=== PATIENT | female | born 2000 | race African-American/Black ===

== ENCOUNTER 2018-01-04 21:19 | Emergency (ER) | payer MEDICAID ==
[~2018-01-04] VITALS: Ht 167.6 cm; Wt 66.4 kg
[2018-01-04 21:31] VITALS: BP 132/89; Ht 167.6 cm; Wt 66.4 kg
== END 2018-01-05 00:14 | disposition home or self-care (01) ==
LOC: D.ER 21:19
DX: R51 Headache (principal); R06.02 Shortness of breath

== ENCOUNTER 2019-10-02 18:47 | Emergency (ER) | payer SELFPAY ==
[~2019-10-02] VITALS: Ht 167.6 cm; Wt 59.0 kg
[2019-10-02 19:00] VITALS: BP 142/71; Ht 167.6 cm; Wt 59.0 kg
[2019-10-02] MEDS ORDERED: PENICILLIN V P500 MG PO (19:39)
== END 2019-10-02 19:48 | disposition home or self-care (01) ==
LOC: D.ER 18:47
PROVIDERS: Emergency Medicine
DX: J02.0 Streptococcal pharyngitis (principal)